=== PATIENT | male | born 1995 | race Caucasian/White ===

== ENCOUNTER 2022-09-28 12:34 | Outpatient (CLI) | payer OTHER, SELFPAY ==
[2022-09-28 13:54] LABS: Albumin* 4.5 g/dL (3.3-5.0); Chloride* 106 mmol/L (96-114)
[2022-09-28 13:55] LABS: Potassium* 3.7 mmol/L (3.6-5.1); Sodium* 140 mmol/L (135-149)
[2022-09-28 13:57] LABS: Bilirubin Direct* 0.3 mg/dL (0.0-0.5); Bilirubin Total* 1.3 mg/dL (0.1-1.5); Blood Urea Nitrogen* 16 mg/dL (5-24); Carbon Dioxide* 25 mmol/L (20-32); Creatinine* 0.9 mg/dL (0.5-1.5); Estimated Glomerular Filt Rate 120 ml/min; Total Protein* 7.8 g/dL (6.0-8.3)
[2022-09-28 13:58] LABS: Alanine Aminotransferase* 24 U/L (4-50); Alkaline Phosphatase* 71 U/L (40-150); Aspartate Amino Transferase* 39 U/L (12-35); Calcium* 9.2 mg/dL (8.4-10.6); Glucose* 137 mg/dL (60-115)
[2022-09-28 14:16] LABS: Lipase* 2267 U/L (23-300)
== END 2022-09-28 12:35 | disposition home or self-care (01) ==
PROVIDERS: Visit Provider Physician Assistant
DX: R10.13 Epigastric pain (principal)
CPT/HCPCS: 80048; 80076; 83690

== ENCOUNTER 2022-09-29 14:54 | Emergency (ER) | payer OTHER, SELFPAY ==
[2022-09-29 14:58] VITALS: BP 145/91; PULSE 90; RESP 18; TEMP 36.7; O2SAT 97; BMI 39.6
--- NOTE | 2022-09-29 15:23 | CRLHL7_ITS ---
For Patients: As a result of the Century Cures Act, medical imaging exams and procedure reports are released immediately into your electronic medical record. You may view this report before your referring provider. If you have questions, please contact your health care provider. Indication: Abdominal pain with elevated lipase. Technique: Sonography of the abdomen was performed limited to the structures discussed below Comparison: None Findings: The liver is enlarged measuring 18.9 centimeters. Echotexture is hyperechoic consistent with fatty infiltration. No focal mass. No biliary ductal dilatation. The gallbladder appears normal. The common duct measures 5 millimeters which is top normal for a patient of this age The pancreas is not seen well enough to evaluate. Right kidney appears normal measuring 12 centimeters. Impression: 1. Enlarged heterogeneous liver consistent with fatty infiltration. 2. Normal-appearing gallbladder. 3. Common bile duct is top-normal at 5 millimeters. Greater than or equal to 6 millimeters is considered abnormal in this age range. 4. The pancreas is not seen well enough to evaluate due to overlying bowel gas. Dictated by Jean-Paul Byrne MD @ 09/29/2022 4:39:59 PM (Electronically Signed)
--- NOTE | 2022-09-29 15:24 | ED.ABDPAIN ---
HPI - Abdominal Pain General Chief Complaint: Abdominal Pain Stated Complaint: Abnormal Labs from [facility] Time Seen by Provider: 09/29/22 14:56 History of Present Illness HPI narrative: This 27-year-old male comes in because of upper epigastric abdominal pain. He was seen in urgent care yesterday and labs were drawn. These returned with results of elevated lipase is at 2267. He was contacted regarding this finding and instructed to come here for further evaluation and treatment. The patient states that he has been having abdominal pain for the past couple weeks. This pain is been worse with in taking food. He reports episodes of abdominal pain coming and going here in there over the past couple years. He states that he has an occasional drink of alcohol but does not do so often. He does not report any fevers. He is otherwise in good health. He states that he is feeling better currently and states that he does not have any pain unless he presses in his upper abdomen. Related Data Home Medications Medication Instructions Recorded Confirmed ibuprofen 600 mg tablet 600 mg PO Q8H PRN 09/28/22 09/28/22 omeprazole [Prilosec] PO 09/28/22 09/28/22 Previous Rx's Medication Instructions Recorded omeprazole 40 mg capsule,delayed 40 mg PO QDAY #30 caps 09/28/22 release hydrocodone 5 mg-acetaminophen 325 1 tab PO Q4-6H PRN pain #15 tabs 09/29/22 mg tablet ondansetron HCl 4 mg tablet 4 mg PO Q6H #20 tabs 09/29/22 Allergies Allergy/AdvReac Type Severity Reaction Status Date / Time amoxicillin AdvReac Intermediate Verified 09/29/22 15:02 Review of Systems Status of ROS Reports: 10 or more systems reviewed and unremarkable except as noted in History and below Narrative Constitutional: No fevers, no weight gain or loss. Eyes: No discharge. No vision changes. HENT: No congestion, no sore throat, no ear pain. Cardiovascular: No chest pain, no palpitations. Respiratory: No shortness of breath, no wheezes, no cough. Gastrointestinal: Upper epigastric abdominal pain worse when taking food. Genitourinary: No dysuria, no hematuria. Musculoskeletal: Normal range of motion. Skin: No rashes, no pruritis. Neurological: No dizziness, weakness, sensory change, speech change. Endo/Heme/Allergies: No bruising or bleeding. No polydipsia. Pysch: no suicidality, no anxiety, no insomnia. All other systems reviewed and are negative. PFSH PFS Social History Smoking Status: Never smoker Do you use any of these nicotine containing products: Smokeless Tobacco Second hand tobacco smoke exposure: No How often do you have a drink containing alcohol: 2-4 times a month AUDIT-C Alcohol total score: 2 Non-prescribed substance use: denies use service: No Exam Narrative: Exam Narrative: Constitutional: Well-developed, well-nourished, no acute distress. HEENT: Normocephalic, atraumatic. Neck: Normal range of motion. Nontender. Supple. Heart: Regular. No murmurs. Normal rate. Intact distal pulses. Lungs: Clear to auscultation. No chest discomfort. No wheezes, rhonchi, or rales. Abdomen: Normal bowel sounds. Upper epigastric abdominal pain. No rebound tenderness. Genitalia: Deferred. Back: No midline tenderness. Normal range of motion. Extremities: Normal range of motion. No injury. Skin: Intact. No rash. Warm. No erythema or pallor. Neurologic: No altered sensation. No weakness. Alert and oriented. Psychiatric: No suicidality. No anxiety or depression. No insomnia. Nursing notes and vitals signs are reviewed. Const: Vital Signs, click to edit/add: Vital Signs - 24 hr 09/29/22 14:58 Temperature 98.0 F Pulse Rate [Left P ulse Oximeter] 90 Respiratory Rate 18 Blood Pressure [Ri ght Upper Arm] 145/91 H Pulse Oximetry 97 Oxygen Delivery Me thod Room Air Course Vital Signs Vital signs: Initial Vital Signs Temperature 98.0 F 09/29/22 14:58 Temperature Source Temporal Artery Scan 09/29/22 14:58 Pulse Rate 90 09/29/22 14:58 Pulse Rhythm 09/29/22 14:58 Pulse Strength 3+ Normal 09/29/22 14:58 Respiratory Rate 18 09/29/22 14:58 Blood Pressure 145/91 H 09/29/22 14:58 Blood Pressure Mean 109 09/29/22 14:58 Blood Pressure Position Sitting 09/29/22 14:58 Pulse Oximetry 97 09/29/22 14:58 Oxygen Delivery Method 09/29/22 14:58 Vital Signs Temperature 98.0 F 09/29/22 14:58 Pulse Rate 90 09/29/22 14:58 Respiratory Rate 18 09/29/22 14:58 Blood Pressure 145/91 H 09/29/22 14:58 Pulse Oximetry 97 09/29/22 14:58 Oxygen Delivery Method 09/29/22 14:58 Temperature 98.0 F 09/29/22 14:58 Pulse Rate 90 09/29/22 14:58 Respiratory Rate 18 09/29/22 14:58 Blood Pressure 145/91 H 09/29/22 14:58 Pulse Oximetry 97 09/29/22 14:58 Oxygen Delivery Method 09/29/22 14:58 MDM - Abdominal Pain MDM Narrative Medical decision making narrative: This patient comes in from request by urgent care where his lab results returned with an elevated lipase. His lipase is drawn yesterday returned at 2267. He states that he is feeling better and was able to take a little bit of food today. An IV was established and labs were drawn. He has normal lab results except for his lipase which is decreased to 1093. Ultrasound of the right upper quadrant shows no abnormalities to explain this pancreatitis. The patient states that he takes alcohol infrequently. He is feeling better and has been able to take some food today so he is okay to return home. I did provide prescription for Zofran and [place]. I also instructed him regarding signs and symptoms that indicate a need for return and re-evaluation. Lab Data Labs: Lab Results 09/29/22 09/29/22 09/29/22 Range/Units 15:39 15:39 15:39 WBC 9.32 (4.50-11.00) K/uL RBC 4.54 (4.30-5.90) m/uL Hgb 14.4 (13.5-17.5) gm/dL Hct 43.0 (37.0-53.0) % MCV 95 (80-100) fL MCH 32 (26-34) pg MCHC 34 (32-36) gm/dL RDW Coeff of Denice 11.8 (11.5-15.5) % Plt Count 285 (140-440) K/uL Neut % (Auto) 72.4 H (42.0-72.0) % Lymph % (Auto) 18.6 L (20-44) % Whitfield % (Auto) 7.0 (0.0-11.0) % Eos % (Auto) 1.7 (0.0-7.0) % Baso % (Auto) 0.3 (0.0-3.0) % Neut # (Auto) 6.70 (1.7-7.0) K/uL Lymph # (Auto) 1.70 (0.90-2.90) K/uL Whitfield # (Auto) 0.70 (0.00-0.90) K/UL Eos # (Auto) 0.16 (0.00-0.50) K/uL Baso # (Auto) 0.03 (0.00-0.30) K/uL Sodium 140 (135-149) mmol/L Potassium 3.6 (3.6-5.1) mmol/L Chloride 107 (96-114) mmol/L Carbon Dioxide 23 (20-32) mmol/L BUN 14 (5-24) mg/dL Creatinine 0.8 (0.5-1.5) mg/dL Estimated Creat Clear 156.75 Estimated GFR 124 ml/min Glucose 134 H (60-115) mg/dL Calcium 8.8 (8.4-10.6) mg/dL Total Bilirubin 0.8 (0.1-1.5) mg/dL Direct Bilirubin 0.2 (0.0-0.5) mg/dL AST 26 (12-35) U/L ALT 23 (4-50) U/L Alkaline Phosphatase 73 (40-150) U/L Total Protein 7.6 (6.0-8.3) g/dL Albumin 4.5 (3.3-5.0) g/dL Lipase 1093 H (23-300) U/L Imaging Data US - abdomen: Radiologist's impression: 1. Enlarged heterogeneous liver consistent with fatty infiltration. 2. Normal-appearing gallbladder. 3. Common bile duct is top-normal at 5 millimeters. Greater than or equal to 6 millimeters is considered abnormal in this age range. 4. The pancreas is not seen well enough to evaluate due to overlying bowel gas. Discharge Plan Discharge Clinical Impression: Acute pancreatitis Patient Disposition: Home, Self-Care Condition: Improved Additional Instructions: Take medication as needed and indicated. Follow up with MD or return if symptoms are recurrent or worsening. Prescriptions: New hydrocodone-acetaminophen 5-325 mg tablet 1 tab PO Q4-6H PRN (Reason: pain) Qty: 15 0RF ondansetron HCl 4 mg tablet 4 mg PO Q6H Qty: 20 0RF No Action omeprazole [Prilosec] PO ibuprofen 600 mg tablet 600 mg PO Q8H PRN omeprazole 40 mg capsule,delayed release(DR/EC) 40 mg PO QDAY Qty: 30 1RF Follow Up/Referrals: Provider,Not a Local [Primary Care Provider] - Stand Alone [facility]
[2022-09-29 15:51] LABS: Basophils Absolute Auto 0.03 K/uL (0.00-0.30); Basophils Percent Auto 0.3 % (0.0-3.0); Eosinophils Absolute Auto 0.16 K/uL (0.00-0.50); Eosinophils Percent Auto 1.7 % (0.0-7.0); Hemoglobin* 14.4 gm/dL (13.5-17.5); Lymphocytes Percent Auto 18.6 % (20-44); Mean Corpuscular HGB Conc 34 gm/dL (32-36); Mean Corpuscular Hemoglobin 32 pg (26-34); Mean Corpuscular Volume 95 fL (80-100); Neutrophils Percent Auto 72.4 % (42.0-72.0); Platelet Count* 285 K/uL (140-440); RDW Coefficient of Variation % 11.8 % (11.5-15.5); Red Blood Count 4.54 m/uL (4.30-5.90); White Blood Count* 9.32 K/uL (4.50-11.00)
[2022-09-29 15:56] LABS: Slide Review Reflex No
[2022-09-29 16:10] LABS: Albumin* 4.5 g/dL (3.3-5.0)
[2022-09-29 16:11] LABS: Chloride* 107 mmol/L (96-114); Potassium* 3.6 mmol/L (3.6-5.1); Sodium* 140 mmol/L (135-149)
[2022-09-29 16:13] LABS: Alkaline Phosphatase* 73 U/L (40-150); Aspartate Amino Transferase* 26 U/L (12-35); Bilirubin Direct* 0.2 mg/dL (0.0-0.5); Bilirubin Total* 0.8 mg/dL (0.1-1.5); Lipase* 1093 U/L (23-300); Total Protein* 7.6 g/dL (6.0-8.3)
[2022-09-29 16:14] LABS: Alanine Aminotransferase* 23 U/L (4-50); Blood Urea Nitrogen* 14 mg/dL (5-24); Carbon Dioxide* 23 mmol/L (20-32); Creatinine* 0.8 mg/dL (0.5-1.5); Est. Creatinine Clearance* 156.75; Estimated Glomerular Filt Rate 124 ml/min
[2022-09-29 16:15] LABS: Calcium* 8.8 mg/dL (8.4-10.6); Glucose* 134 mg/dL (60-115)
[2022-09-29 17:44] VITALS: BP 143/89; PULSE 76; RESP 16
== END 2022-09-29 17:52 | disposition home or self-care (01) ==
PROVIDERS: Emergency Provider Emergency Medicine Emergency Medical Services
DX: K85.90 Acute pancreatitis without necrosis or infection, unspecified (principal)
CPT/HCPCS: 36415; 76705; 80048; 80076; 83690; 85025; 99284